=== PATIENT | female | born 2000 ===

== ENCOUNTER 2022-03-05 16:50 | Inpatient (IN) | payer OTHER ==
[2022-03-05] MEDS ORDERED: Ketorolac Tromethamine 30 MG/ML VIAL ONE (17:09)
[2022-03-05] MEDS ORDERED: Acetaminophen 500 MG TAB ONE (17:09)
[2022-03-05 18:06] LABS: #Basophils 0.1 thou/uL (0.0-0.2); #Lymphocytes 0.7 thou/uL (1.20-3.40); #Monocytes 0.6 thou/uL (0.11-0.59); #Neutrophils 10.5 thou/uL (1.40-6.50); %Basophils 0.5 % (0.0-1.0); %Eosinophils 0.2 % (0.0-10.0); %Lymphocytes 6.2 % (28.0-48.0); %Monocytes 5.3 % (0.0-4.0); %Neutrophils 87.8 % (31.0-61.0); Hemoglobin 14.3 g/dL (12.0-16.0); Mean Corpuscular HGB CONC 33.5 g/dL (32.0-36.0); Mean Corpuscular Hemoglobin 31.1 pg (25.0-35.0); Mean Corpuscular Volume 92.9 fL (78.0-98.0); Mean Platelet Volume 8.4 fL (7.4-10.4); Platelet Count 196 thou/uL (130-400); RBC Distribution Width 10.8 % (11.5-14.5); Red Blood Cell (RBC) Count 4.61 mill/uL (4.00-5.20); White Blood Cell (WBC) Count 11.9 thou/uL (4.8-10.8)
[2022-03-05 18:13] LABS: BHCG - Serum Negative (NEGATIVE); Pregs Control Background? CLEAR/WHITE (CLR/WHITE); Pregs Control Bar Appear? YES (CONTROL BAR)
[2022-03-05] MEDS ORDERED: Dextrose 50% Abboject 50 ML SYRINGE SLOW IVP PRN (18:15)
[2022-03-05] MEDS ORDERED: Dextrose 5% in Water 1,000 ML IV PRN (18:15)
[2022-03-05] MEDS ORDERED: hydrALAZINE 20 MG/ML VIAL SLOW IVP PRN (18:15)
[2022-03-05] MEDS ORDERED: traMADol HCl 50 MG TAB PO PRN ×3 (18:15→19:06)
[2022-03-05] MEDS ORDERED: Lidocaine 1% PF 5 ML VIAL ONE (18:19)
[2022-03-05] MEDS ORDERED: Morphine 4 MG/ML VIAL ONE (18:19)
[2022-03-05 18:26] LABS: Anion Gap 11 mmol/L (10-20); BUN (Urea Nitrogen) 19 mg/dL (8.4-21.0); Calc. Creatinine Clearance 0 mL/min (70-130); Calcium 9.7 mg/dL (7.8-10.44); Carbon Dioxide 26 mmol/L (22-29); Chloride 106 mmol/L (98-107); Glucose 134 mg/dL (70-105); Potassium 3.8 mmol/L (3.5-5.1); Sodium 139 mmol/L (136-145)
[2022-03-05] MEDS ORDERED: Ketorolac Tromethamine 30 MG/ML VIAL IVP SCH (19:15)
[2022-03-05] MEDS: Sodium Chloride 0.9% 1,000 ML IV SCH (20:59)
[2022-03-05] MEDS: Famotidine 20 MG TAB PO SCH (22:02)
[2022-03-05] MEDS: Famotidine/PF 20 mg/2ml Vial SLOW IVP SCH (22:06)
[2022-03-05] MEDS: Senokot S 8.6-50 MG TAB PO SCH (22:06)
[2022-03-05] MEDS: Cyclobenzaprine 10 MG TAB PO PRN (22:06)
[2022-03-05 22:25] VITALS: BMI 22.4
[2022-03-06] MEDS: Ketorolac Tromethamine 30 MG/ML VIAL IVP SCH ×5 (00:19→23:54)
[2022-03-06] MEDS: Acetaminophen 500 MG TAB PO SCH ×5 (00:20→23:53)
[2022-03-06] MEDS: traMADol HCl 50 MG TAB PO SCH ×5 (00:20→23:54)
[2022-03-06 01:27] LABS: SARS-CoV-2 NAA Rapid Test Not Detected (NotDetected)
[2022-03-06] MEDS: Cyclobenzaprine 10 MG TAB PO PRN (04:35)
[2022-03-06] MEDS: Sodium Chloride 0.9% 1,000 ML IV SCH (04:35)
[2022-03-06 05:53] LABS: #Lymphocytes 1.6 thou/uL (1.20-3.40); #Monocytes 0.6 thou/uL (0.11-0.59); #Neutrophils 3.5 thou/uL (1.40-6.50); %Basophils 0.5 % (0.0-1.0); %Eosinophils 0.5 % (0.0-10.0); %Lymphocytes 27.7 % (28.0-48.0); %Monocytes 11.2 % (0.0-4.0); %Neutrophils 60.1 % (31.0-61.0); Hemoglobin 12.6 g/dL (12.0-16.0); Mean Corpuscular HGB CONC 33.5 g/dL (32.0-36.0); Mean Corpuscular Hemoglobin 31.4 pg (25.0-35.0); Mean Corpuscular Volume 93.8 fL (78.0-98.0); Mean Platelet Volume 8.9 fL (7.4-10.4); Platelet Count 159 thou/uL (130-400); RBC Distribution Width 10.7 % (11.5-14.5); White Blood Cell (WBC) Count 5.7 thou/uL (4.8-10.8)
[2022-03-06 06:08] LABS: Anion Gap 9 mmol/L (10-20); BUN (Urea Nitrogen) 19 mg/dL (8.4-21.0); Calc. Creatinine Clearance 101 mL/min (70-130); Carbon Dioxide 25 mmol/L (22-29); Chloride 110 mmol/L (98-107); Potassium 3.7 mmol/L (3.5-5.1); Sodium 140 mmol/L (136-145)
[2022-03-06 06:09] LABS: Calcium 8.7 mg/dL (7.8-10.44); Glucose 99 mg/dL (70-105)
[2022-03-06 06:11] LABS: Phosphorus 4.1 mg/dL (2.3-4.7)
[2022-03-06] MEDS: Famotidine 20 MG TAB PO SCH ×2 (09:58→21:09)
[2022-03-06] MEDS: Senokot S 8.6-50 MG TAB PO SCH ×2 (09:59→21:09)
[2022-03-06] MEDS: Polyethylene Glycol 3350 17 GM Packet PO SCH (11:51)
[2022-03-06] MEDS: Famotidine/PF 20 mg/2ml Vial SLOW IVP SCH ×2 (11:51→21:13)
[2022-03-06] MEDS: Ondansetron PF 4 MG/2 ML Vial IVP PRN ×2 (16:56→22:08)
[2022-03-07] MEDS: Cyclobenzaprine 10 MG TAB PO PRN (05:44)
[2022-03-07] MEDS: Acetaminophen 500 MG TAB PO SCH ×3 (05:44→14:45)
[2022-03-07] MEDS: traMADol HCl 50 MG TAB PO SCH ×3 (05:46→14:46)
[2022-03-07] MEDS: Polyethylene Glycol 3350 17 GM Packet PO SCH (08:40)
[2022-03-07] MEDS: Famotidine 20 MG TAB PO SCH (08:44)
[2022-03-07] MEDS: Senokot S 8.6-50 MG TAB PO SCH (08:45)
[2022-03-07 11:56] VITALS: BP 97/62; TEMP 97.6
== END 2022-03-07 15:10 | disposition home or self-care (01) | DRG 201 ==
LOC: ERS 16:50 → SURG B 18:15
PROVIDERS: ADMIT Surgery; ATTEND Surgery
PROC: 0W9B30Z Drainage of Left Pleural Cavity with Drainage Device, Percutaneous Approach (ICD-10-PCS; principal; 2022-03-05)
DX: S27.0XXA Traumatic pneumothorax, initial encounter (principal); F17.200 Nicotine dependence, unspecified, uncomplicated; F12.10 Cannabis abuse, uncomplicated; Z20.822 Contact with and (suspected) exposure to COVID-19; Z79.899 Other long term (current) drug therapy; V94.9XXA Unspecified water transport accident, initial encounter
CPT/HCPCS: 32551; 36415; 71045; 71046; 80048; 83735; 84100; 84703; 85025; 96372; 96374; J1885; J2270; J2405; J7050; S0028; U0002